=== PATIENT | male | born 1995 | race Caucasian/White ===

== ENCOUNTER 2020-08-28 00:23 | Emergency (ER) | payer SELFPAY ==
--- NOTE | 2020-08-28 01:15 | EDM.PDOC ---
ED HPI GENERAL MEDICAL PROBLEM - General Chief Complaint: Neurological Problem Stated Complaint: [facility] Time Seen by Provider: 08/28/20 00:59 Source of Information: Reports: Patient, Family (Mother) History Limitations: Reports: No Limitations - History of Present Illness INITIAL COMMENTS - FREE TEXT/NARRATIVE: Mr. Paul is a very pleasant 24-year-old gentleman, who is now brought to the ED by EMS after suffering a witnessed seizure at home. According to the patient's mother, she heard the patient fall in the bathroom, then found him having a generalized tonic-clonic seizure wherein he bit his tongue, but did not lose continence of bowel or bladder. She estimates the duration of the seizure to be about 5 minutes, after which time the patient was postictal for quite some time. He was apparently initially combative when he came around, but has since regained normal mentation, and is friendly and cooperative here in the ED. From the patient's perspective, he states that he remembers using the bathroom, stumbling, then, the next thing he knew, he woke up in an ambulance. I am told that EMS gave the patient 2 mg of IM midazolam. The patient states that he has pain to the middle of his back, otherwise, he denies any other pain elsewhere, including his tongue. The patient states that he has had 1 or 2 seizures previously, about 5 or 6 years ago. A work-up, including an EEG, was negative. He has not been prescribed an antiepileptic medication. The patient denies recent sleep deprivation. No alcohol tonight, and he denies a history of illicit drug use. Here in the ED, the patient's initial BP was slightly elevated at 118/102, with a tachycardia of 117 bpm. Otherwise, he is afebrile, saturating 97% on room air. Prior to kalpana's seizure, the patient denies having a recent fever, chills, sore throat, ear pain, nasal or sinus congestion, cough, dyspnea, chest pain, palpitations, nausea, vomiting, constipation, diarrhea, abdominal pain, urinary symptoms, recent weight gain or weight loss, recent bloody bowel movements or black bowel movements, recent joint aches, headaches, or rashes. The patient does not have a PCP. He has not received an influenza vaccine this season, but agreed to get one here in the ED. Middle Back Pain Score (Numeric/FACES): 5 - Related Data Allergies Allergy/AdvReac Type Severity Reaction Status Date / Time No Known Allergies Allergy Verified 08/28/20 00:33 Home Meds: Home Meds . [No Known Home Meds] 10/02/15 [History] Past Medical History Neurological History: Reports: Seizure (see HPI) Endocrine/Metabolic History: Reports: Obesity/BMI 30+ - Past Surgical History HEENT Surgical History: Reports: Adenoidectomy, Oral Surgery (dental extractions), Tonsillectomy Social & Family History - Tobacco Use Tobacco Use Status *Q: Never Tobacco User Tobacco Use Within Last Twelve Months: Smokeless Tobacco (Chews 1/2 can per day) - Caffeine Use Caffeine Use: Reports: Coffee, Energy Drinks - Alcohol Use Alcohol Use History: Yes Alcohol Use Frequency: Rarely - Recreational Drug Use Recreational Drug Use: No - Living Situation & Occupation Living situation: Reports: Single, with Family (Parents) Occupation: Unemployed ED ROS GENERAL - Review of Systems Review Of Systems: Comprehensive ROS is negative, except as noted in HPI. - Physical Exam Exam: See Below Exam Limited By: No Limitations General Appearance: Alert, WD/WN, No Apparent Distress Eye Exam: Bilateral Eye: EOMI, Normal Inspection, PERRL Ears: Normal External Exam, Normal Canal, Hearing Grossly Normal, Normal TMs Nose: Normal Inspection, Normal Mucosa, No Blood Throat/Mouth: Normal Inspection, Normal Lips, Normal Teeth, Normal Gums, Normal Oropharynx, Normal Voice, No Airway Compromise, Other (Small contusion to the right lateral tongue - no laceration) Head Exam: Atraumatic, Normocephalic Neck: Normal Inspection, Supple, Non-Tender, Full Range of Motion Respiratory/Chest: No Respiratory Distress, Lungs Clear, Normal Breath Sounds, No Accessory Muscle Use Cardiovascular: Normal Peripheral Pulses, Regular Rate, Rhythm, No Edema, No Gallop, No JVD, No Murmur, No Rub GI/Abdominal: Normal Bowel Sounds, Soft, Non-Tender, No Organomegaly, No Distention, No Abnormal Bruit, No Mass Neuro Exam (Abbreviated): Alert, Oriented, CN II-XII Intact, Normal Cognition, No Motor/Sensory Deficits Back Exam: Full Range of Motion, Other (While there is no visible abnormality to the patient's thoracic spine, he complains of tenderness to palpation. He denies tenderness to palpation of the tissue to both sides of the spine.) Extremities: Normal Inspection, Normal Range of Motion, No Pedal Edema, Normal Capillary Refill Psychiatric: Normal Affect Skin Exam: Warm, Dry, Intact, Normal Color, No Rash Course - Vital Signs Last Recorded V/S: Last Vital Signs Temp 36.6 C 08/28/20 00:28 Pulse 97 08/28/20 02:30 Resp 20 08/28/20 02:30 BP 91/67 08/28/20 02:30 Pulse Ox 96 08/28/20 02:30 - Orders/Labs/Meds Labs: Laboratory Tests 08/28/20 08/28/20 08/28/20 Range/Units 01:15 01:15 01:40 WBC 12.26 H (4.23-9.07) K/mm3 RBC 5.29 (4.63-6.08) M/mm3 Hgb 15.9 (13.7-17.5) gm/dl Hct 46.2 (40.1-51.0) % MCV 87.3 (79.0-92.2) fl MCH 30.1 (25.7-32.2) pg MCHC 34.4 (32.2-35.5) g/dl RDW Std Deviation 41.9 (35.1-43.9) fL Plt Count 286 (163-337) K/mm3 MPV 9.7 (9.4-12.3) fl Neutrophils % (Manual) 76 H (40-60) % Band Neutrophils % 3 (0-10) % Lymphocytes % (Manual) 9 L (20-40) % Atypical Lymphs % 0 % Monocytes % (Manual) 7 (2-10) % Eosinophils % (Manual) 4 (0.8-7.0) % Basophils % (Manual) 1 (0.2-1.2) Platelet Estimate Adequate RBC Morph Comment Normal Sodium 138 (136-145) mEq/L Potassium 4.3 (3.5-5.1) mEq/L Chloride 103 (98-107) mEq/L Carbon Dioxide 26 (21-32) mEq/L Anion Gap 13.3 (5-15) BUN 12 (7-18) mg/dL Creatinine 1.2 (0.7-1.3) mg/dL Est Cr Clr Drug Dosing TNP Estimated GFR (MDRD) > 60 (>60) mL/min BUN/Creatinine Ratio 10.0 L (14-18) Glucose 82 (74-106) mg/dL Calcium 9.5 (8.5-10.1) mg/dL Phosphorus 2.0 L (2.6-4.7) mg/dL Magnesium 2.4 (1.8-2.4) mg/dl Total Bilirubin 0.6 (0.2-1.0) mg/dL AST 36 (15-37) U/L ALT 81 H (16-63) U/L Alkaline Phosphatase 89 (46-116) U/L Creatine Kinase 479 H (39-308) U/L Total Protein 7.9 (6.4-8.2) g/dl Albumin 4.3 (3.4-5.0) g/dl Globulin 3.6 gm/dL Albumin/Globulin Ratio 1.2 (1-2) Urine Opiates Screen Presumptive positive H (GQWNLM=398) Ur Buprenorphine Scrn Negative (CUTOFF=10) Ur Oxycodone Screen Negative (WLA0SW=531) Urine Methadone Screen Negative (VSK8ZF=254) Ur Propoxyphene Screen Negative (YKBOQA=460) Ur Barbiturates Screen Negative (VCYTYV=091) Ur Tricyclics Screen Negative (LNMPOR=008) Ur Phencyclidine Scrn Negative (CUTOFF=25) Ur Amphetamine Screen Negative (FRJRBI=806) U Methamphetamines Scrn Negative (INNVBO=253) U Benzodiazepines Scrn Negative (UBYFCO=297) U Cocaine Metab Screen Negative (UMFOFJ=217) U Marijuana (THC) Screen Presumptive positive H (CUTOFF=50) Ethyl Alcohol 0.00 (0.00) gm% Meds: Medications Discontinued Medications Generic Name Dose Route Start Last Admin Trade Name Freq PRN Reason Stop Dose Admin Influenza Virus Vaccine 1 each 08/28/20 01:10 Pharmacy To Dose - Influenza Vaccine IM 08/28/20 01:11 ONETIME ONE Influenza Virus Vaccine 60 mcg 08/28/20 01:30 08/28/20 06:51 Flu Vacc [id number](6mos Up)/Pf 60 Mcg/0.5 Ml Syringe IM 08/28/20 01:31 60 mcg .ONCE ONE Administration - Re-Assessments/Exams Free Text/Narrative Re-Assessment/Exam: 08/28/20 01:11 As above, the patient was heard falling, and witnessed to be suffering an approximately 5-minute duration tonic-clonic seizure, during which time he bit his tongue, earlier tonight. We are told that he was combative when he woke up, and that he was postictal for some time. EMS gave 2 mg of IM midazolam. At this time, the patient is alert with normal mentation and a normal neurologic exam. I have ordered a work-up that includes a CT of the head without contrast, along with numerous blood tests, a urine drug screen, and, because the patient is complaining of mid-back pain with associated tenderness, a chest x-ray. 08/28/20 01:32 Two-view chest radiograph appears to be grossly normal. The cardiac silhouette is within normal limits. No pulmonary vascular congestion. No pleural effusions. No focal infiltrate. No pneumothorax. No thoracic vertebral injury seen. Formal read per the Radiologist pending. 08/28/20 01:58 CT of the head without contrast is read by [facility] as: 1. No acute intracranial abnormality. 2. Remainder of findings as above. 08/28/20 02:57 The patient's CBC is remarkable for mild leukocytosis of 12.26, but with only 3% bandemia, and the remainder of his CBC being unremarkable. His CMP is unremarkable. His magnesium level is within normal limits at 2.4. His phosphate level is slightly depressed at 2.0. His CPK is modestly elevated at 479. His EtOH level is 0.00. His urine drug screen is positive for both THC and opiates. 08/28/20 03:01 Test results discussed with the patient and his mother. As above, today's work- up is remarkable for both THC and opiates in his system. The patient states that he does not recall taking either. Marijuana, unless smoked in a massive quantity, would not be expected to lower seizure threshold, however, opiates do. I recommended, going forward, that the patient avoid all recreational drugs. I will refer him to the neurology midlevel Mervat Duke DNP, at [facility] for further evaluation, that may include a repeat EEG. I explained to the patient and his mother why we are not starting him on an antiepileptic medication here in the ED. The patient will be given an influenza vaccine prior to discharge. Departure - Departure Time of Disposition: 03:04 Disposition: Home, Self-Care 01 Condition: Good Clinical Impression: Generalized tonic-clonic seizure, Marijuana use, Opioid abuse - Discharge Information *PRESCRIPTION DRUG MONITORING PROGRAM REVIEWED*: Not Applicable *COPY OF PRESCRIPTION DRUG MONITORING REPORT IN PATIENT MALGORZATA: Not Applicable Referrals: PCP,None [Primary Care Provider] - Forms: ED Department Discharge Additional Instructions: You were seen in the emergency room after suffering a generalized tonic-clonic seizure at home. Work-up in the ER included numerous blood tests, a urine drug screen, a chest x- ray, and a CT of your head without contrast. Your urine drug screen returned positive for both marijuana and opiates. While marijuana will generally not lower seizure threshold, opiates do. The remainder of your work-up was unremarkable. We recommend that you avoid all recreational drugs, going forward. We recommend that you follow-up with the neurology midlevel Mervat Duke DNP, at [facility], at the next available appointment. Please call [phone] to make an appointment. If any other problems, please do not hesitate to return to the ER. You were given an influenza vaccine during your ER visit. Sepsis Event Note (ED) - Evaluation Sepsis Screening Result: No Definite Risk
[2020-08-28] MEDS ORDERED: FLU VACC QS2020-21(6MOS UP)/PF 60 MCG/0.5 ML SYRINGE IM ONE (01:30)
--- NOTE | 2020-08-28 07:03 | CR ---
Chest: 2 views of the chest were obtained. Comparison: Prior chest x-ray of 10/02/15. Heart size and mediastinum are normal. Lungs are clear with no acute parenchymal change. Bony structure shows nothing acute. Impression: 1. Nothing acute is seen on 2 view chest x-ray. Diagnostic code #1
[2020-08-28 07:09] VITALS: BP 91/67; PULSE 97
--- NOTE | 2020-08-28 07:18 | CT ---
Head CT Technique: Multiple axial sections through the brain were obtained. Intravenous contrast was not utilized. Reconstructed coronal and sagittal images were obtained. Comparison: No prior intracranial imaging is available. Findings: Ventricles along with basal cisterns and sulci over the convexities are within normal limits for the patient's age. No abnormal parenchymal densities are seen. No evidence of intracranial hemorrhage. No midline shift or mass-effect is appreciated. Soft tissue densities are seen within the anterior ethmoid sinuses and frontal sinus. There is a soft tissue density within the right frontal sinus most likely due to retention cyst measuring about 3.2 cm. Slight mucosal thickening is seen within both maxillary sinuses. Visualized mastoid sinuses show nothing acute. No acute calvarial finding is seen. Impression: 1. Chronic appearing sinus disease as noted above. 2. Nothing acute is seen on noncontrast head CT study. Diagnostic code #2 I agree with preliminary report issued by Delia finalized on 08/28/20, 2:55 AM [employer]
== END 2020-08-28 03:20 | disposition home or self-care (01) ==
LOC: JD.ED 00:23
DX: R56.9 Unspecified convulsions (principal); F11.10 Opioid abuse, uncomplicated; F12.90 Cannabis use, unspecified, uncomplicated; E66.9 Obesity, unspecified; Z68.39 Body mass index [BMI] 39.0-39.9, adult; Z23 Encounter for immunization
CPT/HCPCS: 36415; 70450; 70450-26; 71046; 71046-26; 80053; 80306; 80307; 82550; 83735; 84100; 85007; 85027; 90686; 99284; 99285-25; G0008

== ENCOUNTER 2021-02-22 18:13 | Emergency (ER) | payer SELFPAY ==
[2021-02-22 18:25] VITALS: BP 147/101; PULSE 110
[2021-02-22] MEDS ORDERED: Sodium Chloride 0.9% 10 ML Syringe FLUSH PRN (19:18)
[2021-02-22] MEDS ORDERED: Lactated Ringers 1,000 ML IV ONE (19:18)
--- NOTE | 2021-02-22 20:02 | EDM.PDOC ---
ED HPI GENERAL MEDICAL PROBLEM - General Chief Complaint: Abdominal Pain Stated Complaint: ABDOMINAL PAIN/NAUSEA Time Seen by Provider: 02/22/21 19:16 - History of Present Illness INITIAL COMMENTS - FREE TEXT/NARRATIVE: Patient arrived to ED by private vehicle He is accompanied by father Onset of symptoms was 3 days ago Has been having pain across lower abdomen Pain is more prominent on left side, with some radiation to left lumbar area Feels like "something moving" inside Maximum pain severity 8/10 Pain severity 2-3/10 currently, reports resolution of pain at times Associated mild nausea No vomiting, diarrhea, blood in stools No hematuria or dysuria Pain vaguely similar to prior kidney stone No abdominal surgery history Left Lower Abdomen Pain Score (Numeric/FACES): 4 - Related Data Allergies Allergy/AdvReac Type Severity Reaction Status Date / Time No Known Allergies Allergy Verified 02/22/21 18:25 Home Meds: Home Meds Prochlorperazine Maleate 10 mg PO Q6H PRN #12 tablet 02/22/21 [Rx] Past Medical History - Past Health History Medical/Surgical History: Denies Medical/Surgical History Genitourinary History: Reports: Renal Calculus Neurological History: Reports: Seizure Endocrine/Metabolic History: Reports: Obesity/BMI 30+ - Past Surgical History HEENT Surgical History: Reports: Adenoidectomy, Oral Surgery, Tonsillectomy Social & Family History - Caffeine Use Caffeine Use: Reports: Soda - Recreational Drug Use Recreational Drug Use: Yes Recreational Drug Type: Reports: Marijuana/Hashish - Living Situation & Occupation Living situation: Reports: Single, with Family (Parents) Occupation: Unemployed ED ROS GENERAL - Review of Systems Review Of Systems: See Below Free Text/Narrative/Comment: Constitutional - no fever Eyes - no eye pain; no visual disturbance ENT - no rhinorrhea; no congestion; no epistaxis Cardiovascular - no chest pain Respiratory - no shortness of breath; no cough Gastrointestinal - abdominal pain; nausea; no vomiting; no diarrhea Genitourinary - no dysuria Musculoskeletal - no neck pain; back pain; no extremity injury Neurological - no headache; no speech disturbance; no weakness ED EXAM, GENERAL - Physical Exam Exam: See Below Free Text/Narrative:: Constitutional - awake; alert; no acute distress Head - no facial swelling or weakness Eyes - extra ocular motion intact; conjunctiva normal; pupils equal and reactive to light ENT - no nasal deformity; no epistaxis; normal phonation; mucus membranes moist; Neck - no swelling Respiratory - normal respiratory effort; no crackles or wheezing; no stridor Cardiovascular - regular rhythm; normal rate; S1; S2; grade 1/6 systolic murmur GI/Abdomen - normal bowel sounds; soft; mild tenderness across lower abdomen; no rebound; no guarding; no mass Musculoskeletal - grossly normal strength and motion; no swelling or deformity Skin - warm; dry Neurologic - normal speech; no weakness Psychiatric - normal mood and affect; memory and attention normal Course - Vital Signs Text/Narrative:: . Considered etiologies included: abdominal pain, nausea, UTI, cystitis, diverticulitis, kidney stone, renal colic Symptoms and examination were discussed Investigations were initiated Empiric treatment was provided with IV fluid infusion and ondansetron At re-evaluation patient reported feeling better Lab results were unremarkable Considerations for CT imaging was discussed and deferred with patient agreement Symptomatic treatment was prescribed Patient was felt to be stable for outpatient follow-up Return precautions were provided Last Recorded V/S: Last Vital Signs Temp 35.9 C L 02/22/21 18:23 Pulse 110 H 02/22/21 18:23 Resp 18 02/22/21 18:23 BP 147/101 H 02/22/21 18:23 Pulse Ox 97 02/22/21 18:23 - Orders/Labs/Meds Labs: Laboratory Tests 02/22/21 02/22/21 02/22/21 Range/Units 19:32 19:32 19:40 WBC 8.77 (4.23-9.07) K/mm3 RBC 5.42 (4.63-6.08) M/mm3 Hgb 16.4 (13.7-17.5) gm/dl Hct 48.5 (40.1-51.0) % MCV 89.5 (79.0-92.2) fl MCH 30.3 (25.7-32.2) pg MCHC 33.8 (32.2-35.5) g/dl RDW Std Deviation 44.1 H (35.1-43.9) fL Plt Count 290 (163-337) K/mm3 MPV 9.8 (9.4-12.3) fl Neut % (Auto) 69.7 H (34.0-67.9) % Lymph % (Auto) 19.7 L (21.8-53.1) % Bertie % (Auto) 7.6 (5.3-12.2) % Eos % (Auto) 2.6 (0.8-7.0) Baso % (Auto) 0.2 (0.1-1.2) % Neut # (Auto) 6.10 H (1.78-5.38) K/mm3 Lymph # (Auto) 1.73 (1.32-3.57) K/mm3 Bertie # (Auto) 0.67 (0.30-0.82) K/mm3 Eos # (Auto) 0.23 (0.04-0.54) K/mm3 Baso # (Auto) 0.02 (0.01-0.08) K/mm3 Sodium 143 (136-145) mEq/L Potassium 4.6 (3.5-5.1) mEq/L Chloride 106 (98-107) mEq/L Carbon Dioxide 29 (21-32) mEq/L Anion Gap 12.6 (5-15) BUN 11 (7-18) mg/dL Creatinine 1.0 (0.7-1.3) mg/dL Est Cr Clr Drug Dosing 118.18 mL/min Estimated GFR (MDRD) > 60 (>60) mL/min BUN/Creatinine Ratio 11.0 L (14-18) Glucose 83 (70-99) mg/dL Calcium 9.0 (8.5-10.1) mg/dL Total Bilirubin 0.7 (0.2-1.0) mg/dL AST 27 (15-37) U/L ALT 91 H (16-63) U/L Alkaline Phosphatase 89 (46-116) U/L Total Protein 7.7 (6.4-8.2) g/dl Albumin 4.1 (3.4-5.0) g/dl Globulin 3.6 gm/dL Albumin/Globulin Ratio 1.1 (1-2) Urine Color Yellow (Yellow) Urine Appearance Clear (Clear) Urine pH 8.5 H (5.0-8.0) Ur Specific [place] 1.015 (1.005-1.030) Urine Protein Negative (Negative) Urine Glucose (UA) Negative (Negative) Urine Ketones Negative (Negative) Urine Occult Blood Negative (Negative) Urine Nitrite Negative (Negative) Urine Bilirubin Negative (Negative) Urine Urobilinogen 0.2 (0.2-1.0) Ur Leukocyte Esterase Negative (Negative) Urine RBC 0-5 (0-5) /hpf Urine WBC 0-5 (0-5) /hpf Ur Squamous Epith Cells 0-5 (0-5) /hpf Urine Bacteria Few (FEW) /hpf Urine Mucus Few (FEW) /hpf Meds: Medications Discontinued Medications Generic Name Dose Route Start Last Admin Trade Name Freq PRN Reason Stop Dose Admin Lactated Ringer's 1,000 mls @ 999 mls/hr 02/22/21 19:18 02/22/21 19:33 Ringers, Lactated IV 02/22/21 20:18 999 mls/hr .BOLUS ONE Administration Sodium Chloride 10 ml 02/22/21 19:18 02/22/21 19:35 Sodium Chloride 0.9% 10 Ml Syringe FLUSH 10 ml ASDIRECTED PRN Administration Keep Vein Open Departure - Departure Time of Disposition: 21:06 Disposition: Home, Self-Care 01 Clinical Impression: Abdominal pain, Nausea - Discharge Information *PRESCRIPTION DRUG MONITORING PROGRAM REVIEWED*: No *COPY OF PRESCRIPTION DRUG MONITORING REPORT IN PATIENT MALGORZATA: Not Applicable Prescriptions: Prochlorperazine Maleate 10 mg PO Q6H PRN #12 tablet PRN Reason: Nausea or GI distress Instructions: Nausea, Adult, Abdominal Pain, Adult Referrals: PCP,None [Primary Care Provider] - Forms: ED Department Discharge Additional Instructions: Return if condition worsens May resume general activity and light diet as tolerated Continue usual medications May take PROCHLORPERAZINE as prescribed, as needed for nausea or gastrointestinal discomfort Follow-up with primary care provider is recommended in 5 to 7 days Sepsis Event Note (ED) - Evaluation Sepsis Screening Result: No Definite Risk
== END 2021-02-22 21:16 | disposition home or self-care (01) ==
LOC: JD.ED 18:13
DX: R10.32 Left lower quadrant pain (principal); R11.0 Nausea; E66.9 Obesity, unspecified; Z68.34 Body mass index [BMI] 34.0-34.9, adult
CPT/HCPCS: 36415; 80053; 81001; 85025; 99284; J7120; 99283